=== PATIENT | female | born 1975 | race African-American/Black ===

== ENCOUNTER 2020-05-06 14:58 | Emergency (ER) | payer OTHER ==
[~2020-05-06] VITALS: Ht 165.1 cm; Wt 107.0 kg
[2020-05-06] MEDS ORDERED: IPRATROPIUM/ALBUTEROL 0.5-3(2.5)MG/3ML NEB HHN ONE ×2 (15:45→19:30)
[2020-05-06] MEDS ORDERED: DEXAMETHASONE 4MG TABLET PO ONE (15:45)
[2020-05-06] MEDS ORDERED: MAGNESIUM 4 G PREMIX 100 ML IV ONE (20:00)
[2020-05-06 21:23] LABS: HEMATOCRIT. 39.2 % (36.0-48.0); HEMOGLOBIN. 12.5 g/dL (12.0-16.0); MEAN CORPUSCULAR HEMOGLOBIN 25.5 pg (28.0-32.0); MEAN CORPUSCULAR VOLUME 79.7 fL (81.0-99.0); PLATELET 222 x1000/uL (130-400); RED BLOOD CELL COUNT 4.91 mill/uL (4.2-5.4); RED CELL DISTRIBUTION WIDTH 16.2 % (11.6-14.6)
[2020-05-06 21:33] LABS: CHLORIDE 108 mEq/L (98-107)
[2020-05-06 21:55] VITALS: BP 131/84
[2020-05-06 22:09] LABS: PLATELET ESTIMATE NORMAL
== END 2020-05-06 22:27 | disposition short-term general hospital (02) ==
LOC: ER 15:15
DX: J45.901 Unspecified asthma with (acute) exacerbation (principal); Z20.822 Contact with and (suspected) exposure to COVID-19
CPT/HCPCS: 36415; 71045; 80053; 85025; 87426; 93005; 94640; 96365; 96366; 99291; J3475; J8540; Z7610